=== PATIENT | male | born 1975 | race Caucasian/White ===

== ENCOUNTER → 2020-11-02 | Outpatient (CLI) | payer OTHER ==
--- NOTE | 2020-11-02 22:06 | MR ---
EXAMINATION TYPE: MR cervical spine wo con DATE OF EXAM: 11/02/2020 COMPARISON: None HISTORY: 45-year-old male M54.12, Neck pain, right arm pain/ leg numbness since fusion 09/12. TECHNIQUE: Multiplanar, multisequence images of the cervical spine were acquired. FINDINGS: No craniocervical junction abnormality, predental space widening, or prevertebral soft tissue swellin g. There is preserved alignment of the cervical spine. Metal hardware artifact from C3 through C6 levels. There is low signal impressing on the ventral thec al sac at the fused levels that likely represents blooming artifact from the metal. No jacob canal co mpromise. Normal course and signal intensity of the cervical spinal cord. No suspicious bone marrow replacement. Mild facet degenerative change. No significant neural foraminal stenosis identified. IMPRESSION: 1. Cervical fusion from C3 through C6 levels. Metal artifact distorts the ventral spinal canal and ve ntral margin of the cord at these levels. However, there is no evident spinal canal compromise. 2. Preserved alignment. 3. No significant neural foraminal stenosis seen.
== END | disposition home or self-care (01) ==
LOC: RADMRIMAIN 14:44
PROVIDERS: ATTEND Orthopaedic Surgery
DX: Z98.1 Arthrodesis status (principal)
CPT/HCPCS: 72141

== ENCOUNTER 2024-09-02 07:50 | Emergency (ER) | payer OTHER ==
[2024-09-02 07:54] VITALS: RESP 18; TEMP 97.8
[2024-09-02] MEDS: HYDROmorphone 0.5 MG/0.5 ML SYRINGE IVP STA ×2 (08:53→11:34)
[2024-09-02] MEDS: LIDOCAINE 4% PATCH TOPICAL STA (08:54)
[2024-09-02] MEDS: KETOROLAC 15 MG/ML 1 ML VIAL IVP STA (08:54)
[2024-09-02] MEDS: SODIUM CHLORIDE 0.9% 1,000 ML IV ONE (08:59)
[2024-09-02] MEDS: HYDROmorphone 1 MG/ML 1 ML SYRINGE IVP STA (09:54)
[2024-09-02] MEDS: methylPREDNISolone SOD SUCCI 125 MG/2 ML VIAL IV STA (09:54)
--- NOTE | 2024-09-02 09:57 | CT ---
EXAMINATION TYPE: CT thor lumbar spine wo con DATE OF EXAM: 09/02/2024 9:27 AM COMPARISON: None. CLINICAL INDICATION: Male, 48 years old with history of pain, Back pain TECHNIQUE: Contrast used: mL of , (none if empty) Oral contrast used: (none if empty) Axial images at 3 mm thick sections. Reconstructed images in the coronal and sagittal planes. FINDINGS: No focal disc herniations or significant disc bulges are evident. No spinal canal stenosis evident. There may be some minimal disc bulging of L4-5 and L5-S1 with anterior thecal sac contact. No spinal canal stenosis is present. Vertebral body heights are preserved. Some Schmorl's node formation is within the lumbar spine. Portions of the lung randall within the field of view are clear. IMPRESSION: 1. NO ACUTE OSSEOUS ABNORMALITY THORACIC AND LUMBAR SPINE. 2. MILD DISC BULGE L4-5 AND L5-S1. [facility], , 09/02/2024 9:54 AM
--- NOTE | 2024-09-02 11:18 | ED ---
General Adult HPI - General Chief complaint: Back Pain/Injury Stated complaint: Back pain Time Seen by Provider: 09/02/24 08:35 Source: patient, EMS, RN notes reviewed, old records reviewed Mode of arrival: EMS - History of Present Illness Initial comments: 48-year-old male who presents with acute on chronic back pain. States it is located in the right side of his lower back with radiation down into his right buttock and down his right leg. Has a history of chronic back pain and has required numerous treatments in the past including nerve stimulators, nerve abla tions, analgesia medications, injections. Follows up with Dr. Lerner. States that this pain has been present for numerous days and has been worsening. Is unable to follow-up with specialist, and therefore presents here for further evaluation. He denies any saddle paresthesias, lower extremity paralysis, urinary or bowel incontinence or retention. He has no other acute complaints at this time. Presents for further evaluation. Denies any trauma. - Related Data Previous Rx's Medication Instructions Recorded HYDROcodone/APAP 5-325MG [Grottoes 1 tab PO Q6HR PRN 3 Days #12 tab 09/02/24 5-325] methocarbamoL [Robaxin-750] 750 mg PO TID PRN 7 Days #21 tab 09/02/24 Allergies Allergy/AdvReac Type Severity Reaction Status Date / Time sulfamethoxazole Allergy Unknown Verified 09/02/24 07:54 [From Bactrim] trimethoprim [From Bactrim] Allergy Unknown Verified 09/02/24 07:54 Review of Systems ROS Statement: Those systems with pertinent positive or pertinent negative responses have been documented in the HPI. Review of Systems: CONST: Denies fever EYES: Denies blurry vision ENT: Denies nasal congestion C/V: Denies Chest pain RESP: Denies shortness of breath GI: Denies abdominal pain : Denies dysuria SKIN: Denies rash. MSK: Endorses back pain NEURO: Denies headache ROS Other: All systems not noted in ROS Statement are negative. Past Medical History Past Medical History: No Reported History Additional Past Medical History / Comment(s): chronic back pain Past Surgical History: Tonsillectomy Additional Past Surgical History / Comment(s): hernia surgery, spine simulator, neck surgery Smoking Status: Current every day smoker Past Alcohol Use History: None Reported Past Drug Use History: None Reported General Exam - General Exam Comments Initial Comments: General: Appears in mild distress secondary to back pain HEAD: Normal with no signs of head trauma. EYES: EOMI ENT: Hearing grossly intact RESPIRATORY: No respiratory distress C/V: Peripheral pulses 2+ intact throughout ABD: Nondistended EXT: Decreased range of motion of right lower extremity secondary to pain and back. No obvious deformity. Chest palpation of the paraspinal muscles of the lower thoracic and lumbar spine. No obvious deformity palpated midline thoracic or lumbar spine. No tenderness or deformities of the cervical spine. Pain with passive motion of the right hip and leg. Neurovascular intact throughout. SKIN: No rashes or lesions observed on exposed skin. NEURO: Alert and orient x 4. No obvious focal deficits. Course Vital Signs 09/02/24 09/02/24 07:51 11:42 Temperature 97.8 F Pulse Rate 68 77 Respiratory 18 18 Rate Blood Pressure 137/81 130/82 O2 Sat by Pulse 95 99 Oximetry Medical Decision Making - Medical Decision Making Was pt. sent in by a medical professional or institution (, PA, EXPERIMENTAL ELECTRONICS DEVELOPER, urgent care, hospital, or care home...) When possible be specific @ -No Did you speak to anyone other than the patient for history (EMS, parent, family, police, friend...)? What history was obtained from this source @ -No Did you review nursing and triage notes (agree or disagree)? Why? @ -I reviewed and agree with nursing and triage notes Were old charts reviewed (outside hosp., previous admission, EMS record, old EKG, old radiological studies, urgent care reports/EKG's, care home records)? Report findings @ -No old charts were reviewed Differential Diagnosis (chest pain, altered mental status, abdominal pain women, abdominal pain men, vaginal bleeding, weakness, fever, dyspnea, syncope, headache, dizziness, GI bleed, back pain, seizure, CVA, palpatations, mental health, musculoskeletal)? @ -Differential Back Pain: Strain, zoster, cauda equina syndrome, epidural abscess, vertebral osteomyelitis, discitis, fracture, subluxation, disc herniation, DJD, spinal stenosis, dissection, AAA, pancreatitis, peptic ulcer disease, pyelonephritis, kidney stone, this is not meant to be an all-inclusive list. EKG interpreted by me (3pts min.). @ -None done X-rays interpreted by me (1pt min.). @ -None done CT interpreted by me (1pt min.). @ -CT thoracic and lumbar spine negative for any obvious acute traumatic process. Patient does have a mild disc bulge at L4-L5 and L5-S1. U/S interpreted by me (1pt. min.). @ -None done What testing was considered but not performed or refused? (CT, X-rays, U/S, labs)? Why? @ -None What meds were considered but not given or refused? Why? @ -None Did you discuss the management of the patient with other professionals (professionals i.e. , PA, EXPERIMENTAL ELECTRONICS DEVELOPER, lab, RT, psych nurse, social media job titles, tie tamper, teacher, financial aid officer, lining caser)? Give summary @ -No Was smoking cessation discussed for >3mins.? @ -No Was critical care preformed (if so, how long)? @ -No Were there social determinants of health that impacted care today? How? (Homelessness, low income, unemployed, alcoholism, drug addiction, transportation, low edu. Level, literacy, decrease access to med. care, [facility], rehab)? @ -No Was there de-escalation of care discussed even if they declined (Discuss DNR or withdrawal of care, Hospice)? DNR status @ -No What co-morbidities impacted this encounter? (DM, HTN, Smoking, COPD, CAD, Cancer, CVA, ARF, Chemo, Hep., AIDS, mental health diagnosis, sleep apnea, morbid obesity)? @ -Chronic back pain Was patient admitted / discharged? Hospital course, mention meds given and route, prescriptions, significant lab abnormalities, going to OR and other pertinent info. @ -Patient presents with acute on chronic back pain. No red flag symptoms to suggest cauda equina syndrome. Vital signs within acceptable limits. Patient will be administered analgesia medications we will obtain CT imaging. Patient was in agreement this plan. CT imaging returned negative for any obvious acute abnormality other than some mild disc herniations at L4-L5 and L5-S1. I updated the patient regarding this. I believe is safe for him to be discharged home at this time. He will be provided with a prescription for Grottoes and a starter pack of Tylenol 3 as well as Robaxin. Recommended he follow-up with his neurologist, Dr. Lerner. He was in agreement this plan. I instructed the patient to follow up with their PCP in the next 1-3 days. I explained that the patient should return to the emergency department if they experience any worsening symptoms. Strict return precautions were discussed with the patient. The patient expressed understanding of these instructions. I answered all questions that the patient had. The patient was discharged home in good condition with their prescriptions and follow up information. Undiagnosed new problem with uncertain prognosis? @ -No Drug Therapy requiring intensive monitoring for toxicity (Heparin, Nitro, Insulin, Cardizem)? @ -No Were any procedures done? @ -No Diagnosis/symptom? @ -Acute on chronic back pain, disc herniation Acute, or Chronic, or Acute on Chronic? @ -Acute on chronic Uncomplicated (without systemic symptoms) or Complicated (systemic symptoms)? @ -Uncomplicated Side effects of treatment? @ -No Exacerbation, Progression, or Severe Exacerbation? @ -No Poses a threat to life or bodily function? How? (Chest pain, [place], [place], pneumonia, PE, COPD, DKA, ARF, appy, cholecystitis, CVA, Diverticulitis, Homicidal, Suicidal, threat to staff... and all critical care pts) @ -Unlikely at this time Disposition Clinical Impression: Chronic back pain, Disc herniation Disposition: HOME SELF-CARE Condition: Good Instructions (If sedation given, give patient instructions): Acute Low Back Pain (ED) Prescriptions: HYDROcodone/APAP 5-325MG [Grottoes 5-325] 1 tab PO Q6HR PRN 3 Days #12 tab PRN Reason: Pain methocarbamoL [Robaxin-750] 750 mg PO TID PRN 7 Days #21 tab PRN Reason: Pain Is patient prescribed a controlled substance at d/c from ED?: Yes When asked, does pt state using other controlled substances?: No If prescribed controlled substance>3 days was MAPS reviewed?: Prescribed <3 Days If opioid is for acute pain is fill amount 7 days or less?: Yes If Rx opioid, was Start Talking consent form obtained?: Yes Referrals: [facility] [NON-STAFF] - 1-2 days (Contact a primary care office to become established with a provider. ) [facility] [[facility] - 1-2 days None,Stated [Primary Care Provider] - 1-2 days Forms: Area PCPs Time of Disposition: 11:18
[2024-09-02] MEDS: ACET/COD 300 MG/30 MG STARTER PACK TAB BTL PO STA (11:34)
[2024-09-02 11:43] VITALS: BP 130/82; PULSE 77
== END 2024-09-02 11:43 | disposition home or self-care (01) ==
LOC: EC 07:50
DX: G89.29 Other chronic pain (principal); M51.360 Other intervertebral disc degeneration, lumbar region with discogenic back pain only; M51.370 Other intervertebral disc degeneration, lumbosacral region with discogenic back pain only; F17.200 Nicotine dependence, unspecified, uncomplicated; Z88.1 Allergy status to other antibiotic agents; Z88.2 Allergy status to sulfonamides
CPT/HCPCS: 99284 ×2; 96374 ×2; 96375 ×3; 96376 ×3; 96361 ×4; 72128; 72131; J1171 ×2; J1885; J2919